=== PATIENT | male | born 1980 | race Caucasian/White ===

== ENCOUNTER 2025-01-25 13:06 | Emergency (ER) | payer MEDICAID ==
[~2025-01-25] VITALS: Ht 172.7 cm; Wt 75.3 kg
[2025-01-25 13:54] LABS: PLATELET COUNT (AUTO) 213 K/uL (150-450); RED BLOOD CELL COUNT(AUTO) 5.14 MIL/uL (4.5-6.0); RED CELL DISTRIBUTION WIDTH 13.6 % (11.5-15.0); WHITE BLOOD COUNT (AUTO) 5.1 K/uL (4.3-11.0)
[2025-01-25 13:56] LABS: APPEARANCE,URINE CLEAR (CLEAR); BLOOD, URINE NEGATIVE Ery/uL (NEGATIVE); LEUKOCYTE ESTERASE ,URINE NEGATIVE (NEGATIVE); NITRITE, URINE NEGATIVE (NEGATIVE); UGLUCOSE NEGATIVE (NEGATIVE)
[2025-01-25 14:00] LABS: CALCIUM, SERUM 8.8 mg/dL (8.5-10.1); CREATININE 1.2 mg/dL (0.6-1.3); SODIUM SERUM 137.0 mmol/L (136-145); UREA NITROGEN, BLOOD 21.0 mg/dL (7-18)
[2025-01-25 14:07] LABS: ASPARTATE AMINOTRANSFERASE 22.0 U/L (15-37); TOTAL PROTEIN, SERUM 7.5 g/dL (6.4-8.2)
[2025-01-25] MEDS ORDERED: KETOROLAC TROMETHAMINE 15 MG/ML VIAL ONE (14:37)
[2025-01-25] MEDS ORDERED: ACETAMINOPHEN ES 500 MG TABLET ONE (14:38)
[2025-01-25] MEDS ORDERED: FAMOTIDINE/PF INJ 20 MG/2 ML VIAL IV ONE (14:38)
[2025-01-25] MEDS: FAMOTIDINE/PF INJ 20 MG/2 ML VIAL IV ONE (15:07)
[2025-01-25] MEDS: ACETAMINOPHEN ES 500 MG TABLET PO ONE (15:08)
[2025-01-25] MEDS: KETOROLAC TROMETHAMINE 15 MG/ML VIAL IV ONE (15:08)
[2025-01-25] MEDS ORDERED: IOHEXOL-300 100 ML VIAL IV ONE (15:45)
[2025-01-25] MEDS ORDERED: IV NS 0.9% 250 ML IV ONE (15:46)
[2025-01-25] MEDS ORDERED: IBUP-1953 PO (17:00)
[2025-01-25 17:19] VITALS: BP 110/74; TEMP 98.4; O2SAT 100
== END 2025-01-25 17:20 | disposition home or self-care (01) ==
LOC: ER 13:16
DX: R10.32 Left lower quadrant pain (principal)
CPT/HCPCS: 99285; 74177; 96374; 76705; 96375; 85025; 80048; 83690; 80076; 81003; 36415; J1885; J1308; J7050; Q9967